=== PATIENT | male | born 1985 | race Two or more races ===

== ENCOUNTER → 2024-09-10 | Outpatient (CLI) | payer OTHER, SELFPAY ==
--- NOTE | 2024-09-10 14:31 | XR_ITS ---
Examination: Right elbow 3 views Technique: Elbow AP, oblique, lateral 3 views Exam date and time: September 10, 2024 1445 hours INDICATIONS: Injury to the elbow December 2023 with elbow pain. FINDINGS: No fracture or dislocation. No elbow effusion IMPRESSION: No fracture or dislocation.
--- NOTE | 2024-09-10 14:31 | XR_ITS ---
Examination: Wrist, right 3 views Technique: Wrist AP, oblique, lateral 3 views Date and time of exam: September 10, 2024 1444 hours INDICATIONS: Injury to the wrist December 2023 with wrist pain. FINDINGS: Mild osteopenia. No fracture or dislocation IMPRESSION: No fracture or dislocation
== END | disposition home or self-care (01) ==
PROVIDERS: PCP Registered Nurse
DX: M25.531 Pain in right wrist (principal); M25.521 Pain in right elbow; S69.91XS Unspecified injury of right wrist, hand and finger(s), sequela; S59.901S Unspecified injury of right elbow, sequela; X58.XXXS Exposure to other specified factors, sequela
CPT/HCPCS: 73080; 73110